=== PATIENT | female | born 1980 | race African-American/Black ===

== ENCOUNTER 2020-11-02 21:39 | Emergency (ER) | payer OTHER ==
[2020-11-02 21:46] VITALS: BP 134/77; PULSE 17; TEMP 98; BMI 34.7
[2020-11-02] MEDS ORDERED: predniSONE 20 MG TABLET (UD) PO ONE (22:09)
[2020-11-02] MEDS ORDERED: diphenhydrAMINE HCL 25 MG CAPSULE (FP) PO ONE ×2 (22:10→22:12)
[2020-11-02] MEDS ORDERED: predniSONE 20 MG TABLET (UD) ONE (22:12)
== END 2020-11-02 22:24 | disposition home or self-care (01) ==
LOC: JERFT 21:39 → JER 21:39 → JERFT 22:24
DX: L23.7 Allergic contact dermatitis due to plants, except food (principal)
CPT/HCPCS: 99283-25

== ENCOUNTER 2021-11-29 13:47 | Emergency (ER) | payer OTHER ==
[2021-11-29 14:02] VITALS: BP 116/52; PULSE 75; RESP 16; TEMP 97.6; BMI 33.6
[2021-11-29] MEDS ORDERED: KETOROLAC TROMETHAMINE 30 MG/1 ML VIAL IM ONE (14:40)
[2021-11-29] MEDS ORDERED: KETOROLAC TROMETHAMINE 30 MG/1 ML VIAL ONE (14:44)
== END 2021-11-29 15:14 | disposition home or self-care (01) ==
LOC: JERFT 13:47
PROC: 3E0233Z Introduction of Anti-inflammatory into Muscle, Percutaneous Approach (ICD-10-PCS; principal; 2021-11-29)
DX: S83.412A Sprain of medial collateral ligament of left knee, initial encounter (principal)
CPT/HCPCS: 73562-TC-LT-FY; 99284-25

== ENCOUNTER 2022-04-09 03:55 | Day surgery (SDC) | payer OTHER ==
[2022-04-07 10:57] VITALS: BMI 33.6
[~2022-04-09 03:55] MED LIST: BUPIVACAINE HCL/PF 0.5% (5MG/ML) 10 ML VIAL NR ONE; LIDOCAINE HCL 0.5% EPINEPHRINE 1:200,000 50 ML VIAL IJ ONE
[2022-04-09] MEDS ORDERED: BUPIVACAINE HCL/PF 0.5% (5MG/ML) 10 ML VIAL ONE (07:24)
[2022-04-09] MEDS ORDERED: LIDOCAINE HCL/PF 2% SDV 5ML VIAL ONE (07:53)
[2022-04-09] MEDS ORDERED: GLYCOPYRROLATE 0.2 MG/1 ML VIAL ONE (07:53)
[2022-04-09] MEDS ORDERED: FENTANYL CITRATE/PF 50 MCG/ML VIAL ONE ×3 (07:53→09:30)
[2022-04-09] MEDS ORDERED: ALBUTEROL SO4 HFA INHALER IH ONE (07:53)
[2022-04-09] MEDS ORDERED: PROPOFOL 40 ML ONE (07:53)
[2022-04-09] MEDS ORDERED: MIDAZOLAM HCL 2 MG/2 ML SINGLE DOSE VIAL ONE (07:53)
[2022-04-09] MEDS ORDERED: ONDANSETRON 4 MG/2 ML VIAL ONE (07:53)
[2022-04-09] MEDS ORDERED: PHENYLEPHRINE HCL 10 MG/1 ML SINGLE DOSE VIAL ONE (07:53)
[2022-04-09] MEDS ORDERED: ceFAZolin SODIUM 1 GM VIAL ONE (07:53)
[2022-04-09] MEDS ORDERED: DEXAMETHASONE SOD PHOSPHATE 4 MG/1 ML VIAL ONE (07:53)
[2022-04-09] MEDS ORDERED: ONDANSETRON 4 MG/2 ML VIAL IVPUSH PRN (08:09)
[2022-04-09] MEDS ORDERED: LACTATED RINGERS SOLUTION 1,000 ML IV SCH (08:15)
[2022-04-09] MEDS ORDERED: LIDOCAINE HCL 0.5% EPINEPHRINE 1:200,000 50 ML VIAL IJ ONE ×2 (08:35→08:36)
[2022-04-09] MEDS ORDERED: BUPIVACAINE HCL/PF 0.5% (5MG/ML) 10 ML VIAL NR ONE (08:50)
[2022-04-09] MEDS ORDERED: ACETAMINOPHEN INJECTION 100 ML IVPB ONE (09:14)
[2022-04-09] MEDS: ACETAMINOPHEN 1000 MG/100 ML BAG IVPB ONE ×2 (09:15→09:16)
[2022-04-09 10:32] VITALS: RESP 20
[2022-04-09] MEDS ORDERED: oxyCODONE HCL 5 MG TABLET ONE (10:53)
[2022-04-09 14:40] VITALS: BP 120/70; PULSE 60; TEMP 98
== END 2022-04-09 13:05 | disposition home or self-care (01) ==
LOC: JASU-SURG 03:55
PROVIDERS: ATTEND Orthopaedic Surgery
PROC: 0SBD4ZZ Excision of Left Knee Joint, Percutaneous Endoscopic Approach (ICD-10-PCS; 2022-04-09)
PROC: 0SCD4ZZ Extirpation of Matter from Left Knee Joint, Percutaneous Endoscopic Approach (ICD-10-PCS; principal; 2022-04-09 08:00)
DX: M23.92 Unspecified internal derangement of left knee (principal); M23.42 Loose body in knee, left knee
CPT/HCPCS: 81025; 94760

== ENCOUNTER 2022-12-12 15:09 | Emergency (ER) | payer OTHER ==
[2022-12-12 15:16] VITALS: BP 121/53; PULSE 67; RESP 18; TEMP 98.2; BMI 35.2
[2022-12-12] MEDS ORDERED: AMOX TR/POT CLAV 875MG/125MG TABLETS (FP) PO ONE (15:49)
[2022-12-12] MEDS ORDERED: AMOX TR/POT CLAV 875MG/125MG TABLETS (FP) ONE (15:51)
== END 2022-12-12 16:42 | disposition home or self-care (01) ==
LOC: JERFT 15:09 → JER 15:09 → JERFT 16:42
DX: K08.89 Other specified disorders of teeth and supporting structures (principal)
CPT/HCPCS: 99283-25

== ENCOUNTER 2022-12-16 13:15 | Emergency (ER) | payer OTHER ==
[2022-12-16 13:27] VITALS: BP 132/80; PULSE 91; RESP 18; TEMP 98.5; BMI 35.2
== END 2022-12-16 13:57 | disposition home or self-care (01) ==
LOC: JER 13:15 → JERFT 13:15
DX: K08.89 Other specified disorders of teeth and supporting structures (principal); R22.0 Localized swelling, mass and lump, head; K14.8 Other diseases of tongue; S02.5XXD Fracture of tooth (traumatic), subsequent encounter for fracture with routine healing; X58.XXXD Exposure to other specified factors, subsequent encounter
CPT/HCPCS: 99282-25

== ENCOUNTER 2023-09-15 18:19 | Emergency (ER) | payer OTHER ==
[2023-09-15 18:25] VITALS: BP 147/72; PULSE 87; RESP 20; TEMP 98.6; BMI 36.0
[2023-09-15] MEDS ORDERED: ACETAMINOPHEN 325 MG TABLET (FP) ONE (19:03)
[2023-09-15] MEDS ORDERED: IBUPROFEN 400 MG TABLET (FP) PO ONE (19:04)
[2023-09-15] MEDS: IBUPROFEN 400 MG TABLET (FP) PO ONE (19:09)
[2023-09-15] MEDS: ACETAMINOPHEN 325 MG TABLET (FP) PO ONE (19:10)
== END 2023-09-15 19:39 | disposition home or self-care (01) ==
LOC: JERFT 18:19
DX: K08.89 Other specified disorders of teeth and supporting structures (principal)
CPT/HCPCS: 99283-25